=== PATIENT | female | born 1950 | race Caucasian/White ===

== ENCOUNTER → 2016-08-06 | Outpatient (CLI) | payer OTHER, MEDICAID | LOC: FIMAGING 09:17 | PROVIDERS: ATTEND Family Medicine | DX: Z12.31 Encounter for screening mammogram for malignant neoplasm of breast (principal); Z80.3 Family history of malignant neoplasm of breast | CPT/HCPCS: G0202 ==

== ENCOUNTER 2016-08-24 17:08 | Emergency (ER) | payer OTHER, MEDICAID ==
--- NOTE | 2016-08-24 18:23 | EDPHY ---
H & P Time Seen by Provider: 08/24/16 17:36 HPI/ROS: HPI Right pectoral pain. 66-year-old female by private vehicle. She has a history of anxiety. She states that she has had discomfort to the right pectoral muscle up by the insertion to the shoulder after she had a mammogram on the 06 of August. She reports that she thinks that was from positioning of her shoulder during the mammogram. She has no issues with range of motion in the right shoulder. No chest pain. No associated shortness of breath. No asymmetric swelling of her extremities. There is no history of trauma. No loss of sensation or weakness in her right upper extremity. No other complaints. ROS: Constitutional: No fever, no chills. No weakness. Eyes: No discharge. No changes in vision. ENT: No sore throat. No nasal congestion or rhinorrhea. Respiratory: No cough. No shortness of breath. Cardiac: No chest pain, no palpitations. Gastrointestinal: No abdominal pain, no vomiting, no diarrhea. Genitourinary: No hematuria. No dysuria or increased frequency with urination. Musculoskeletal: No back pain. No neck pain. As above. No other extremity pain. Skin: No rashes. Neurological: No headache. No focal weakness or altered sensation. Past medical history: Anxiety. Social history: Here by herself. Nonsmoker. Physical Exam: General Appearance: Alert, no distress. This patient is responding to questions appropriately and in full sentences. This patient appears well- hydrated and well-nourished. Eyes: Pupils equal and round no pallor or injection. No lid edema, erythema or injection. Right upper extremity/pectoralis/shoulder exam: The right upper extremity is symmetric with the left upper extremity. She has strong distal pulses in the right upper extremity normal capillary refill in all digits. She has normal motor and sensory function in all myotomes in dermatomes of the right upper extremity. On palpation of the pectoralis lateral pectoralis musculature there are no soft tissue changes noted and no differences on palpation of this area in comparison to the left side. Specifically no ecchymosis, no swelling, no warmth, no erythema. Respiratory: There are no retractions, lungs are clear to auscultation with good air movement bilaterally. Cardiovascular: Regular rate and rhythm. No murmur. Neurological: Motor sensory function is grossly intact. Cranial nerves are normal. Gait is normal. Skin: Warm and dry, no rashes. Musculoskeletal: Neck is supple and nontender. Extremities are symmetrical. All joints range without pain or impingement. Psychiatric: No agitation. No depression. Database: EKG: Imaging: Procedures: Emergency department course: After my evaluation of the patient, we discussed imaging. I explained that an ultrasound would be beneficial to evaluate for possible blood clot in her right upper extremity, however, her presentation is not consistent with this. I explained that the best imaging modality to look at the soft tissues of her shoulder an associated right pectoralis area would be an MRI. Explained this could be ordered by her primary care physician, Dr. Kearney, and could be done as an outpatient. She is in agreement with this plan. She feels comfortable going home. I advised her on taking ibuprofen. Follow-up and return to emergency department precautions discussed. All of her questions were answered. She was discharged in good condition. Differential Diagnosis: The differential diagnosis on this patient includes but is not limited to right pectoralis muscle strain. DVT, abscess, cellulitis, necrotizing fasciitis, Pancoast tumor, other malignancy unlikely. This represents a partial list of diagnoses considered. These considerations are based on history, physical exam , past history, reassessment and diagnostic testing. Smoking Status: Never smoked Constitutional: Initial Vital Signs Temperature (C) 36.7 C 08/24/16 17:15 Heart Rate 69 08/24/16 17:15 Respiratory Rate 18 08/24/16 17:15 Blood Pressure 144/72 H 08/24/16 17:15 O2 Sat (%) 97 08/24/16 17:15 O2 Delivery Mode Room Air Allergies/Adverse Reactions: Sulfa (Sulfonamide Antibiotics) [Sulfa(Sulfonamide Antibiotics)] Allergy ( Intermediate, Verified 08/24/16 17:17) Hives Home Medications: Medication Instructions Recorded Diazepam [Valium 5 MG (*)] 5 mg PO 08/24/16 clonazePAM [Klonopin (*)] 0.5 mg PO 08/24/16 Departure - Departure Disposition: Home, Routine, Self-Care Clinical Impression: Pectoralis muscle strain Condition: Good Instructions: Muscle Strain (ED) Additional Instructions: Read and follow provided instructions. Follow-up with your primary care physician, Dr. Kearney, in 1-2 days for re- evaluation and referral for an MRI of your right shoulder and pectoralis for further evaluation. Ibuprofen dosin mg every 6 hours with meals for the next 3 days only. Take only as needed. Return to the emergency department for worsening symptoms or other serious concerns. Referrals: Chani Kearney MD [Primary Care Provider] - As per Instructions
[2016-08-24 18:36] VITALS: BP 130/74; PULSE 70; RESP 14; TEMP 98.4; O2SAT 94
== END 2016-08-24 18:35 | disposition home or self-care (01) ==
DX: S29.019A Strain of muscle and tendon of unspecified wall of thorax, initial encounter (principal); X58.XXXA Exposure to other specified factors, initial encounter

== ENCOUNTER → 2016-10-30 | Outpatient (CLI) | payer OTHER, MEDICAID | LOC: FIMAGING 11:07 | PROVIDERS: ATTEND Family Medicine | DX: R07.89 Other chest pain (principal) ==

== ENCOUNTER → 2017-01-15 | Outpatient (CLI) | payer OTHER, MEDICAID | LOC: FIMAGING 12:55 | PROVIDERS: ATTEND Family Medicine | DX: S43.431A Superior glenoid labrum lesion of right shoulder, initial encounter (principal); M25.811 Other specified joint disorders, right shoulder ==

== ENCOUNTER 2017-01-24 12:01 | Emergency (ER) | payer OTHER, MEDICAID ==
[2017-01-24 12:09] VITALS: TEMP 97.5
--- NOTE | 2017-01-24 13:08 | EDPHY ---
General Narrative: CHIEF COMPLAINT: Right shoulder pain HISTORY OF PRESENT ILLNESS: Patient complains of right shoulder pain started August. This happened after a mammogram. Sudden onset pain that has persistent ever since. Involves the right pack and right shoulder. Worse when she lays down or attempts to abduct the shoulder. No radiating plain. No sensory complaints. No chest pain or shortness of breath. No hand, wrist or elbow pain. She saw her primary care physician who ordered physical therapy. She completed this with minimal improvement. She then had MRI on the 15 January which showed a injury to the labrum. There is also bursitis but no rotator cuff injury. She contacted a new orthopedist to see tomorrow, but would like to go back to her previously established orthopedist Dr. Alvarez. No other associated complaints or modifying factors past ESTABLISHED ORTHOPEDIST: Dr. Alvarez REVIEW OF SYSTEMS: Ten systems reviewed and are negative unless otherwise noted in the HPI EXAMINATION General Appearance: Alert, no distress Cardiovascular: Pulses normal throughout. Symmetric radial pulses 2+. Brisk cap refill Neurological: A&O, sensory symmetric, interossei and designer strength symmetric Skin: Warm and dry, no rash. No erythema. No petechiae purpura. No ecchymosis Extremities: Tenderness of the right shoulder over the anterior joint line. No tenderness of the AC joint. No tenderness of the proximal humerus. Range of motion is intact but painful. No apprehension. No instability. Neurovascular intact distally. Psychiatric: Mood and affect normal DIFFERENTIAL DIAGNOSES: Including but not limited to slap tear, rotator cuff injury, shoulder sprain, bursitis arthritis MDM: 12:50 p.m. Right shoulder pain with MRI showing tear of the labrum. Rotator cuff intact. She has not yet seen orthopedist. She has an appointment tomorrow with Dr. Harkins, and she would like to contact Dr Alvarez as she is established with her. She is in no acute distress but has not had any pain medication prescribed area. I will provide short course of pain medication and a sling for her comfort use only. She is comfortable this plan. She will be discharged and stable condition, neuro intact. ED Precautions: Worsening pain. Erythema, edema, cyanosis, pallor, paresthesia or anesthesia. - History Smoking Status: Never smoked - Objective Vital Signs: Initial Vital Signs Temperature (C) 97.5 F 01/24/17 12:02 Heart Rate 100 11/19/17 12:02 Respiratory Rate 20 01/24/17 12:02 Blood Pressure 174/112 H 01/24/17 12:02 O2 Sat (%) 99 01/24/17 12:02 O2 Delivery Mode Room Air Allergies/Adverse Reactions: Sulfa (Sulfonamide Antibiotics) [Sulfa(Sulfonamide Antibiotics)] Allergy ( Intermediate, Verified 01/24/17 12:02) Hives Home Medications: Medication Instructions Recorded Diazepam [Valium 5 MG (*)] 5 mg PO 08/24/16 Hydrocodone/APAP 5/325 [[place] 1 - 2 tab PO Q4H PRN #11 tab 01/24/17 5/325 (*)] Ondansetron Odt [Zofran Odt 4 mg 4 mg PO Q6 PRN #12 tab 01/24/17 (*)] Departure - Departure Disposition: Home, Routine, Self-Care Clinical Impression: Acute pain of right shoulder Tear of right glenoid labrum Qualifiers: Encounter type: initial encounter Qualified Code(s): S43.431A - Superior glenoid labrum lesion of right shoulder, initial encounter Condition: Good Instructions: Shoulder Sprain (ED), Arthralgia (ED) Additional Instructions: 1. Anti-inflammatories [id number] as discussed 2. Sling for comfort only as needed. Removed when sleeping 3. Short course of pain medication as prescribed as needed 4. Follow up with Orthopedics for definitive care as discussed Referrals: Chani Kearney MD [Primary Care Provider] - As per Instructions Roberto Alvarez MD [Medical Doctor] - As per Instructions Prescriptions: Hydrocodone/APAP 5/325 [[place] 5/325 (*)] 1 - 2 tab PO Q4H PRN #11 tab PRN Reason: Pain, Moderate Ondansetron Odt [Zofran Odt 4 mg (*)] 4 mg PO Q6 PRN #12 tab PRN Reason: Nausea/Vomiting, Use 1st
[2017-01-24 13:28] VITALS: BP 117/82; PULSE 87; RESP 16; O2SAT 96
== END 2017-01-24 13:28 | disposition home or self-care (01) ==
DX: S43.431A Superior glenoid labrum lesion of right shoulder, initial encounter (principal); X58.XXXA Exposure to other specified factors, initial encounter
CPT/HCPCS: 99284; A4565

== ENCOUNTER → 2018-05-13 | Outpatient (CLI) | payer OTHER, MEDICAID | LOC: BMCIMAGING 10:02 | PROVIDERS: ATTEND Podiatrist Foot & Ankle Surgery | DX: S92.511A Displaced fracture of proximal phalanx of right lesser toe(s), initial encounter for closed fracture (principal) ==

== ENCOUNTER → 2018-07-01 | Outpatient (CLI) | payer OTHER, MEDICAID | LOC: BMCIMAGING 10:19 | PROVIDERS: ATTEND Physician Assistant | DX: M25.861 Other specified joint disorders, right knee (principal); M25.761 Osteophyte, right knee ==

== ENCOUNTER → 2018-08-23 | Outpatient (CLI) | payer OTHER, MEDICAID | LOC: BMCIMAGING 10:24 ==